=== PATIENT | female | born 1990 | race Caucasian/White ===

== ENCOUNTER → 2024-05-14 | Outpatient (CLI) | payer BC, SELFPAY ==
[2024-05-14 12:22] LABS: Misc Send Out* See Sep Rpt
[2024-05-14 13:13] LABS: Basophils % (Auto) 0 % (0-2.5); Eosinophils % (Auto) 0 % (0-10); Hematocrit 36.9 % (36.0-46.0); Hemoglobin 13.1 g/dL (12.0-16.0); Immature Granulocytes % (Auto) 0 % (0-0); Immature Granulocytes Auto 0.03 Thou/mm3 (0.00-0.00); Lymphocytes # (Auto) 1.3 Thou/mm3 (1.0-4.8); Lymphocytes % (Auto) 14 % (10-50); Mean Corpuscular HGB Conc 35.5 g/dl (31.0-37.0); Mean Corpuscular Hemoglobin 32.3 pg (25.0-35.0); Mean Corpuscular Volume 91 fL (80-100); Monocytes # (Auto) 0.8 Thou/mm3 (0.0-0.8); Monocytes % (Auto) 8 % (0-12); Neutrophils # (Auto) 7.3 Thou/mm3 (1.8-7.7); Neutrophils % (Auto) 77 % (37-80); Nucleated Red Blood Cell % 0 /100 WBC (0); Platelet Count 285 Thou/mm3 (140-440); RDW Standard Deviation 39.8 fL (36.4-46.3); Red Blood Count 4.05 Miln/mm3 (4.00-5.20); White Blood Count 9.5 Thou/mm3 (3.6-11.0)
[2024-05-14 13:16] LABS: Creatinine,Random Urine 83 mg/dL (30-125); Protein Total, Random Urine 25 mg/dL (1-14)
[2024-05-14 13:24] LABS: Alanine Aminotransferase 18 U/L (10-49); Aspartate Amino Transferase 21 U/L (0-34); C-Reactive Protein < 0.4 mg/dL (0.0-0.9); Creatinine (Component) 1.1 mg/dL (0.6-1.3); Free T3 3.5 pg/mL (2.3-4.2); Free T4 (Free Thyroxine) 0.95 ng/dL (0.89-1.76); Thyroid Stimulating Hormone 1.86 uIU/mL (0.55-4.78); eGFR > 60 See Note
[2024-05-14 13:29] LABS: Sed Rate (ESR) 3 mm/hr (0-20)
[2024-05-15 09:58] LABS: RA Screen Negative (Negative)
[2024-05-22 15:35] LABS: Sm Antibody <1.0 NEG AI (<1.0 NEGATIVE)
[2024-05-25 06:51] LABS: PTT-LA Screen 29 seconds (< OR = 40); dRVVT Screen 40 seconds (< OR = 45)
[2024-05-25 06:57] LABS: ANA Screen, IFA NEGATIVE (NEGATIVE); Complement Component C3* 141 mg/dL (83-193); Complement Component C4c* 26 mg/dL (15-57); DNA (ds) Antibody* 1 IU/mL; HLA-B27 Antigen* NEGATIVE (NEGATIVE); Parvovirus B19 Ab IgG 4.6; Parvovirus B19 Ab IgM 0.3; Sm/RNP Antibody <1.0 NEG AI (<1.0 NEGATIVE); Thyroglobulin Antibodies* 2 IU/mL (< OR = 1); Thyroid Peroxidase Antibodies* 209 IU/mL (<9)
== END | disposition home or self-care (01) ==
LOC: COPL 11:51
PROVIDERS: PCP Family Medicine; Referring Provider Internal Medicine Rheumatology; Visit Provider Internal Medicine Rheumatology
DX: L80 Vitiligo (principal)
CPT/HCPCS: 36415; 82565; 82570; 84156; 84182; 84439; 84443; 84450; 84460; 84481; 85025; 85613; 85652; 85730; 86038; 86140; 86147; 86160; 86225; 86235; 86376; 86430; 86747; 86800; 86812

== ENCOUNTER → 2024-06-02 | Outpatient (CLI) | payer BC, SELFPAY ==
--- NOTE | 2024-06-02 13:10 | XR_ITS ---
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
[2024-06-02 14:06] LABS: Coccid Serology, CF (UCD)* See Sep Rpt
[2024-06-02 15:04] LABS: Alanine Aminotransferase 19 U/L (10-49); Albumin, Serum 4.9 gm/dL (3.5-5.0); Alkaline Phosphatase 75 U/L (46-116); Anion Gap 6 (7-16); Aspartate Amino Transferase 16 U/L (0-34); BUN/Creatinine Ratio 14 Ratio (12-20); Bilirubin,Total 0.3 mg/dL (0.3-1.2); Blood Urea Nitrogen 14 mg/dL (9-23); C-Reactive Protein < 0.4 mg/dL (0.0-0.9); Carbon Dioxide 28.4 mMol/L (20.0-31.0); Chloride 103 mMol/L (98-107); Globulin 2.4 gm/dL (2.3-3.5); Glucose 87 mg/dL (74-106); Osmolality,Calculated 273 (275-295); Potassium 4.4 mMol/L (3.4-5.1); Sodium 137 mMol/L (136-145); Total Protein 7.3 gm/dL (5.7-8.2); eGFR > 60 See Note
== END | disposition home or self-care (01) ==
LOC: COPL 12:58
PROVIDERS: PCP Family Medicine; Referring Provider Internal Medicine Infectious Disease; Visit Provider Radiology Diagnostic Radiology
DX: J98.4 Other disorders of lung (principal); B38.2 Pulmonary coccidioidomycosis, unspecified
CPT/HCPCS: 36415; 71046; 80053; 86140; 86171

== ENCOUNTER 2024-07-05 13:57 | Emergency (ER) | payer BC, SELFPAY ==
[2024-07-05 13:58] VITALS: BMI 26.9
[2024-07-05 14:37] VITALS: BP 148/83; PULSE 64; RESP 16; TEMP 37.2; O2SAT 99
--- NOTE | 2024-07-05 14:59 | PD.EDRME ---
Rapid Medical Screening Exam RME Arrival date/time: 07/05/24 13:57 This is a 33-year-old female that comes in with complaints of possible abscess/ cyst to lower back. Patient states she has recently had fevers and headache. Patient started off with a rash to her face in mid May and was told that she possibly had impetigo or cold sore. Patient was given treatment for this. Patient also complains of mid lower back pain. Patient states that she was recently told that she can possibly have a cyst to her lower back. Patient reports that it has been draining. Patient complains of fever and nausea. Patient denies any past medical history. I have greeted and performed a focused initial assessment of this patient. Initial appropriate labs ordered at this time. A comprehensive ED assessment and evaluation of the patient and analysis of all test and completion of medical decision making process will be conducted by additional ED provider. Chief Complaint: General Adult/Misc Complain Time Seen by Provider: 07/05/24 14:34 Vital signs: Vital Signs Temperature 98.9 F 07/05/24 14:37 Pulse Rate 64 07/05/24 14:37 Respiratory Rate 16 07/05/24 14:37 Blood Pressure 148/83 H 07/05/24 14:37 Pulse Oximetry (%) 99 07/05/24 14:37 Oxygen Delivery Method Room Air 07/05/24 14:37
[2024-07-05 15:14] LABS: Collection Type, Urine Voided
[2024-07-05 15:24] LABS: Lactate (Lactic Acid) 1.3 mMol/L (0.4-2.0)
[2024-07-05 15:25] LABS: Basophils % (Auto) 0 % (0-2.5); Eosinophils # (Auto) 0.1 Thou/mm3 (0.0-0.5); Eosinophils % (Auto) 1 % (0-10); Hematocrit 35.6 % (36.0-46.0); Hemoglobin 12.7 g/dL (12.0-16.0); Immature Granulocytes % (Auto) 0 % (0-0); Immature Granulocytes Auto 0.02 Thou/mm3 (0.00-0.00); Lymphocytes # (Auto) 1.9 Thou/mm3 (1.0-4.8); Lymphocytes % (Auto) 23 % (10-50); Mean Corpuscular HGB Conc 35.7 g/dl (31.0-37.0); Mean Corpuscular Hemoglobin 32.5 pg (25.0-35.0); Mean Corpuscular Volume 91 fL (80-100); Monocytes # (Auto) 0.7 Thou/mm3 (0.0-0.8); Monocytes % (Auto) 8 % (0-12); Neutrophils # (Auto) 5.6 Thou/mm3 (1.8-7.7); Neutrophils % (Auto) 68 % (37-80); Nucleated Red Blood Cell % 0 /100 WBC (0); Platelet Count 278 Thou/mm3 (140-440); RDW Standard Deviation 40.4 fL (36.4-46.3); Red Blood Count 3.91 Miln/mm3 (4.00-5.20); White Blood Count 8.3 Thou/mm3 (3.6-11.0)
[2024-07-05 15:33] LABS: Bilirubin,Urine Negative (Negative); Blood,Urine Negative (Negative); Clarity,Urine Clear (Clear/Hazy); Color,Urine Lt-Yellow (Lt Yel-Yel); Culture Indicated,Urine Not Indicated; Glucose, Urine Negative (Negative); Ketones,Urine Negative (Negative); Leukocyte Esterase,Urine Negative (Negative); Nitrite,Urine Negative (Negative); Protein,Urine Negative (Neg - Trace); RBC,Urine 6 /hpf (0-3); Specific Gravity,Urine 1.017 (1.001-1.035); Squamous Epithelial Cell,Urine 4 /hpf (0-5); Urobilinogen,Urine Negative mg/dL (0.0-1.0); WBC,Urine 1 /hpf (0-5)
[2024-07-05 15:41] LABS: HCG,Qualitative Serum Negative
--- NOTE | 2024-07-05 15:53 | XR_ITS ---
Examination: CT pelvis without intravenous contrast. 2-D sagittal and coronal reconstructions. Date and time of exam:July 05, 2024 1613 hrs. Indications: Coccygeal soreness soft tissue pilonidal cyst infection this week CTDI: vol (mGy) : 8.32 DLP: (mGycm) : 279 Technique: Multiple 3 mm axial sections of the pelvis have been obtained with the 64 slice high resolution scanner. Post intravenous administration 60 cc [id number] 2-D sagittal and coronal reconstructions. Low dose protocols were performed. One or more of the following dose reduction techniques were used; automated exposure control, adjustment of the mA and/or KV according to patient size, use of iterative reconstruction technique. Findings: Nonobstructive bowel gas pattern Anteverted uterus 25 mm right adnexal cyst Soft tissue tract extending to the coccyx, axial image 79, 8 mm in thickness and extending 33 mm from the posterior margin of the coccyx to the skin surface No fluid-filled abscess Suspicious for early cortical bone destruction involving the distal coccygeal segment sagittal image 139 Impression: 25 mm right adnexal cyst Soft tissue tract extending from the skin surface to the coccyx, 8 mm in thickness and 33 mm measurement from the posterior margin of the coccyx to the skin surface Suspicious for early cortical bone destruction involving the distal coccygeal segment Recommend MRI pelvis without contrast follow-up
[2024-07-05 15:54] LABS: Alanine Aminotransferase 14 U/L (10-49); Albumin, Serum 4.9 gm/dL (3.5-5.0); Alkaline Phosphatase 66 U/L (46-116); Anion Gap 8 (7-16); Aspartate Amino Transferase 14 U/L (0-34); BUN/Creatinine Ratio 13 Ratio (12-20); Bilirubin,Total 0.5 mg/dL (0.3-1.2); Blood Urea Nitrogen 13 mg/dL (9-23); Calcium 9.9 mg/dL (8.3-10.6); Calcium (Corrected) 9.9 mg/dL (8.5-10.1); Carbon Dioxide 27.8 mMol/L (20.0-31.0); Chloride 103 mMol/L (98-107); Estimated Creatinine Clearance 91.9 mL/min (>60); Globulin 2.5 gm/dL (2.3-3.5); Glucose 87 mg/dL (74-106); Osmolality,Calculated 276 (275-295); Potassium 4.4 mMol/L (3.4-5.1); Procalcitonin < 0.04 ng/ml (0.0-0.49); Sodium 139 mMol/L (136-145); Total Protein 7.4 gm/dL (5.7-8.2); eGFR > 60 See Note
--- NOTE | 2024-07-05 15:54 | EDNOTE_ITS ---
ED General RME/HPI General Chief complaint: General Adult/Misc Complain Stated complaint: PASCUAL x 4 DAYS, SORE ON COCCYX X 2 DAYS Time Seen by Provider: 07/05/24 14:34 Arrival date/time: 07/05/24 13:57 CC: Pain and pus from the top of the butt crack HPI ongoing for several days. Localized back pain also present. Patient denies bowel or bladder symptoms saddle anesthesia numbness tingling weakness in the lower extremity. Localized pain is 2-3 on a 10 scale. Family member at bedside states there was pus expressed out of the area. RME / HPI RME / HPI narrative: 07/05/24 13:57 This is a 33-year-old female that comes in with complaints of possible abscess/ cyst to lower back. Patient states she has recently had fevers and headache. Patient started off with a rash to her face in mid May and was told that she possibly had impetigo or cold sore. Patient was given treatment for this. Patient also complains of mid lower back pain. Patient states that she was recently told that she can possibly have a cyst to her lower back. Patient reports that it has been draining. Patient complains of fever and nausea. Patient denies any past medical history. I have greeted and performed a focused initial assessment of this patient. Initial appropriate labs ordered at this time. A comprehensive ED assessment and evaluation of the patient and analysis of all test and completion of medical decision making process will be conducted by additional ED provider. Related Data Previous Rx's ?Medication ?Instructions ?Recorded loperamide 2 mg capsule 2 mg PO PRN ##14 01/09/13 Phenazopyridine * (PYRIDIUM *) 100 mg PO TIDPC #10 tabs 03/01/14 Sulfamethoxazole/Trimethoprim DS * 1 tab PO BID #10 tabs 03/01/14 (BACTRIM DS *) Cyclobenzaprine * (FLEXERIL *) 10 mg PO Q8HR PRN muscle spasm #15 05/12/16 tabs ibuprofen 600 mg tablet 1 tab PO Q8HR PRN pain #30 tabs 05/12/16 ranitidine HCl 150 mg tablet (Acid 150 mg PO Q12H PRN indigestion #30 11/24/17 Control (ranitidine)) tabs amoxicillin 875 mg-potassium 1 tab PO Q12H #10 tabs 12/15/23 clavulanate 125 mg tablet doxycycline monohydrate 100 mg 100 mg PO BID #10 caps 12/15/23 capsule ibuprofen 800 mg tablet 800 mg PO Q8H PRN pain #10 tabs 12/15/23 Allergies Allergy/AdvReac Type Severity Reaction Status Date / Time adhesive tape Allergy Severe Hives Verified 07/05/24 14:00 Review of Systems Review of Systems Narrative Review of Systems: GEN: No fever, no chills, no weight loss EYES: No discharge, no visual changes, no pain HEENT: No ear pain, no congestion, no sore throat PULM: No shortness of breath, no cough, no congestion CV: No chest pain, no dyspnea on exertion, no palpitations GI: No nausea, no vomiting, no diarrhea, no pain, no constipation : No frequency, no urgency, no dysuria MUSC/SKEL: No joint pain, no back pain SKIN: No rash PSYCH: No hallucinations, no depression HEME/LYMPH: No easy bleeding or bruising tendencies NEURO: No weakness, no headache Past Medical History Past Medical History CARDIAC: Negative Congestive Heart Failure RESPIRATORY: Negative Chronic Obstructive Pulmonary Disease (COPD) GENITOURINARY: Positive Genitourinary Disorders; Negative Renal Disease ENDOCRINE: Negative Diabetes Mellitus Type 1 or Diabetes Mellitus Type 2 Social History SMOKING STATUS: Never smoker ED Exam Narrative Physical exam: [General not in any acute distress Head normocephalic HEENT: Within acceptable limits Neck is supple nontender Chest equal chest rise nontender to palpation Respiratory: Clear to auscultation no wheezes crackles or rubs CV: Rate rhythm is regular no murmurs rubs or clicks Abdomen is distended secondary to body habitus soft nontender no masses positive bowel sounds all 4 quadrants Back: No CVA tenderness no spinous process tenderness from cervical spine thoracic and lumbar spine Skin: Pilonidal sinus detected in the proximal intergluteal cleft region. No surrounding erythema edema no firmness or mass appreciated in the underlying tissue. Unable to express any exudate or blood or fluid from the sinus. No streaking. Nontender to palpation. Otherwise skin is intact no petechiae rash induration ulceration or crepitus Extremities: Moving all extremity against resistance cap refill less than 2 seconds neurosensory intact Neuro: Awake alert oriented x3 Glascow coma 15 no focal deficits] Course Quality Measures none Orders Category Date Time Status CT Screening NOW Care 07/05/24 15:[address] pelvis w con Stat Exams 07/05/24 15:53 Completed Blood Culture (Lab) Stat Lab 07/05/24 15:05 Received CBC Stat Lab 07/05/24 15:10 Completed Comprehensive Metabolic Panel Stat Lab 07/05/24 15:10 Completed HCG,Qualitative Serum Stat Lab 07/05/24 15:10 Completed Lactate (Lactic Acid) Stat Lab 07/05/24 15:10 Completed Procalcitonin Stat Lab 07/05/24 15:10 Completed Urinalysis, C/S if Indicated Stat Lab 07/05/24 15:02 Completed Vital Signs Vital signs: Vital Signs Temperature 98.9 F 07/05/24 14:37 Pulse Rate 64 07/05/24 14:37 Respiratory Rate 16 07/05/24 14:37 Blood Pressure 148/83 H 07/05/24 14:37 Pulse Oximetry (%) 99 07/05/24 14:37 Oxygen Delivery Method Room Air 07/05/24 14:37 MDM Patient data External records reviewed:: [facility] previous records Clinical information provided by:: patient and family Social determinants that could affect healthcare access:: none Patient has the following chronic illnesses:: None How is presenting disease/condition affected by chronic disease/condition?: u neffected by Evaluation data The following diagnostics were reviewed and interpreted by me:: lab results and radiology exam(s) Lab and/or radiology exams considered but not ordered:: CBC shows no acute leukocytosis anemia thrombocytopenia CMP shows no acute electrolyte imbalances renal impairment transaminitis or T. bili elevation. Lactic acid is negative Pro-Luke is negative. Urine is negative Interpretation Summary: This is a pilonidal sinus without cyst, and there is no surrounding erythema or edema low index of suspicion however the patient is insisting on CT with IV contrast to see what the depth of the pilonidal sinus is. Patient and I had a lengthy conversation regarding a follow-up with surgery and/or plastics, review the literature show the patient may be able to get a phenol injection or glue as opposed to surgical resolution to the pilonidal sinus. Medications Medications considered but not ordered:: Bactrim and Keflex, already ordered by urgent care clinic. Medication administrations:: None Consultations Consultation(s) initiated? (list below): No Diagnosis Differential Diagnosis ED Complaint MDM: Pilonidal cyst pilonidal cellulitis pilonidal abscess pilonidal sinus Most likely diagnosis given after review of the tests above:: Pilonidal sinus Admission Indicated Admission indicated?: not indicated Explain why admission is indicated or not indicated:: Stable for outpatient follow-up Admission Request Was there a request for admission?: No Disposition Plan Disposition Plan: Discharge Discharge Attestation Discharge Attestation: The patient and all family members were given an opportunity to ask questions and understood the discharge instructions. Discharge instructions specifically effects, indications for sooner follow up or return to the emergency department, and the expected course of current diagnosis. Patient condition: Stable Medical Decision Making Differential Diagnosis Differential Diagnosis: Pilonidal cyst pilonidal cellulitis pilonidal abscess pilonidal sinus Lab Data 07/05/24 15:10 07/05/24 15:10 Labs: Lab Results 07/05/24 07/05/24 Range/Units 15:02 15:10 WBC 8.3 (3.6-11.0) Thou/mm3 RBC 3.91 L (4.00-5.20) Miln/mm3 Hgb 12.7 (12.0-16.0) g/dL Hct 35.6 L (36.0-46.0) % MCV 91 (80-100) fL MCH 32.5 (25.0-35.0) pg MCHC 35.7 (31.0-37.0) g/dl RDW Std Deviation 40.4 (36.4-46.3) fL Plt Count 278 (140-440) Thou/mm3 Neut % (Auto) 68 (37-80) % Lymph % (Auto) 23 (10-50) % [place] % (Auto) 8 (0-12) % Eos % (Auto) 1 (0-10) % Baso % (Auto) 0 (0-2.5) % Neut # (Auto) 5.6 (1.8-7.7) Thou/mm3 Lymph # (Auto) 1.9 (1.0-4.8) Thou/mm3 [place] # (Auto) 0.7 (0.0-0.8) Thou/mm3 Eos # (Auto) 0.1 (0.0-0.5) Thou/mm3 Baso # (Auto) 0.0 (0.0-0.2) Thou/mm3 Immature Gran # (Auto) 0.02 H (0.00-0.00) Thou/mm3 Absolute Nucleated RBC 0.00 (0.00-0.00) Thou/mm3 Immature Gran % 0 (0-0) % Nucleated RBC % 0 (0) /100 WBC Sodium 139 (136-145) mMol/L Potassium 4.4 (3.4-5.1) mMol/L Chloride 103 (98-107) mMol/L Carbon Dioxide 27.8 (20.0-31.0) mMol/L Anion Gap 8 (7-16) BUN 13 (9-23) mg/dL Creatinine 1.0 (0.6-1.3) mg/dL Estim Creat Clear Calc 91.9 (>60) mL/min eGFR > 60 (60 - ) See Note BUN/Creatinine Ratio 13 (12-20) Ratio Glucose 87 (74-106) mg/dL Calculated Osmolality 276 (275-295) Lactic Acid 1.3 (0.4-2.0) mMol/L Calcium 9.9 (8.3-10.6) mg/dL Corrected Calcium 9.9 (8.5-10.1) mg/dL Total Bilirubin 0.5 (0.3-1.2) mg/dL AST 14 (0-34) U/L ALT 14 (10-49) U/L Alkaline Phosphatase 66 (46-116) U/L Total Protein 7.4 (5.7-8.2) gm/dL Albumin 4.9 (3.5-5.0) gm/dL Globulin 2.5 (2.3-3.5) gm/dL Albumin/Globulin Ratio 2.0 (1.2-2.2) Procalcitonin < 0.04 (0.0-0.49) ng/ml HCG, Qual Negative Ur Collection Type Voided Urine Color Lt-Yellow (Lt Yel-Yel) Urine Clarity Clear (Clear/Hazy) Urine pH 7.0 (5.0-7.0) Ur Specific [place] 1.017 (1.001-1.035) Urine Protein Negative (Neg - Trace) Urine Glucose (UA) Negative (Negative) Urine Ketones Negative (Negative) Urine Blood Negative (Negative) Urine Nitrite Negative (Negative) Urine Bilirubin Negative (Negative) Urine Urobilinogen (Auto) Negative (0.0-1.0) mg/dL Ur Leukocyte Esterase Negative (Negative) Urine RBC 6 H (0-3) /hpf Urine WBC 1 (0-5) /hpf Ur Squamous Epith Cells 4 (0-5) /hpf Urine Bacteria None (None) Ur Culture Indicated? Not Indicated Discharge Plan Plan Patient Disposition: HOME (Self Care) Patient condition on transfer: Stable Prescriptions/Referrals Prescriptions/Med Rec: No Action loperamide 2 MG capsule 2 mg PO PRN Qty: 14 0RF Phenazopyridine * (PYRIDIUM *) 100 MG tablet 100 mg PO TIDPC Qty: 10 0RF Sulfamethoxazole/Trimethoprim DS * (BACTRIM DS *) 1 TAB tablet 1 tab PO BID Qty: 10 0RF ibuprofen 600 MG tablet 1 tab PO Q8HR PRN (Reason: pain) Qty: 30 0RF Cyclobenzaprine * (FLEXERIL *) 10 MG tablet 10 mg PO Q8HR PRN (Reason: muscle spasm) Qty: 15 0RF ranitidine HCl [Acid Control (ranitidine)] 150 mg tablet 150 mg PO Q12H PRN (Reason: indigestion) Qty: 30 0RF ibuprofen 800 mg tablet 800 mg PO Q8H PRN (Reason: pain) Qty: 10 0RF amoxicillin-pot clavulanate 875-125 mg tablet 1 tab PO Q12H Qty: 10 0RF doxycycline monohydrate 100 mg capsule 100 mg PO BID Qty: 10 0RF Referrals: Slick Harper MD [Primary Care Provider] - In 1 week Raegan Davies MD [Physician] - In 1 week Problem List Clinical Impression: Pilonidal sinus without abscess Patient/Caregiver Discharge Instructions Other Activity Instructions:: CT shows that you have a 3.3 cm pilonidal sinus that extends down to the coccyx bone. I do recommend an outpatient MRI follow- up to make sure there is no cortical destruction. Please start the medications both Bactrim and Keflex prescribed by the outpatient clinic for infection. If there are any worsening of symptoms including redness or pus coming out from the area return the emergency room for reevaluation. In the long-term consider surgical consult for the pilonidal situs to get it sealed up or closed off. Education Materials: ED Pilonidal Cyst, Not Infected Print Language: [place] Stand Alone Forms: Kristy Award Info., Patient Portal Info Letter, Work/School Release PA/[employer]ED [employer] Supervising Physician PA/[employer] Supervising Physician: Ke Arias ENP
[2024-07-05 16:06] VITALS: BP 135/83; PULSE 68; RESP 18; TEMP 37; O2SAT 99
== END 2024-07-05 17:20 | disposition home or self-care (01) ==
PROVIDERS: Nurse Practitioner Family; Emergency Provider Emergency Medicine; PCP Family Medicine
DX: L05.91 Pilonidal cyst without abscess (principal)
CPT/HCPCS: 36415; 72193; 80053; 81001; 83605; 84145; 84703; 85025; 87040; 99285; A4649; Q9967

== ENCOUNTER → 2024-07-09 | Outpatient (CLI) | payer BC, SELFPAY ==
--- NOTE | 2024-07-09 07:00 | XR_ITS ---
Examination: MRI lumbar spine without contrast Date and time of exam: July 09, 2024 0704 hours INDICATIONS: Low back pain beginning 4 days ago, CT examination July 05, 2024 of the pelvis shows soft tissue tract extending from the skin surface to the coccyx Technique: Multiple MRI axial and sagittal sections lumbar spine. Sagittal T2-weighted images, TR 3500, TE 118 T1 weighted transverse sections, TR 688 T8.5, T2-weighted sagittal sections T1 weighted sagittal sections TR 621, TE 30 T2 axial sections, TR 4, 190, TE 84. Findings: Adequate alignment lumbar vertebral bodies Moderate to advanced disc narrowing L5-S1 Disc desiccation lower 2 lumbar levels These images do not include the coccygeal segments L5-S1 3 mm central disc bulge contiguous with the left S1 nerve root L4-L5 3 mm central lumbar disc bulge contiguous with the left L5 nerve root L3-L4 no disc protrusion L2-L3 no disc protrusion L1-L2 no disc protrusion IMPRESSION: L5-S1 L4-L5 disc bulges as above Given the patient's findings on the CT pelvis, recommend MRI pelvis without contrast follow-up
== END | disposition home or self-care (01) ==
LOC: SMRI 06:49
PROVIDERS: PCP Physician Assistant; Referring Provider Physician Assistant; Visit Provider Physician Assistant
DX: M51.379 Other intervertebral disc degeneration, lumbosacral region without mention of lumbar back pain or lower extremity pain (principal); M51.369 Other intervertebral disc degeneration, lumbar region without mention of lumbar back pain or lower extremity pain
CPT/HCPCS: 72148

== ENCOUNTER → 2024-07-24 | Outpatient (CLI) | payer BC, SELFPAY ==
--- NOTE | 2024-07-24 13:15 | XR_ITS ---
Examination: MRI pelvis, without contrast Date and time of exam: July 24, 2024 1450 hours INDICATIONS: CT pelvis July 05, 2024 soft tissue tract extending from the skin surface to the coccyx 8 mm in thickness and 33 mm in length, patient states lower back and buttock tenderness Technique: Multiple axial sagittal and coronal images of the pelvis have been obtained with the Siemens high-resolution 1.5 [place] MRI scanner. Images obtained include T2-weighted fat-suppressed sagittal sections, TR 3500, TE 46, T2 weighted coronal fat suppressed images, TR 3050, TE 84, T2-weighted transverse fat suppressed images, TR 3260, TE 63, proton density transverse images, TR 4720 TE 46, and T1 weighted coronal images, TR 560, TE 13. Findings: No free fluid in the pelvis Septated 3 cm left ovarian cyst No soft tissue abscess posterior to the sacrum or coccyx Negative for osteomyelitis No perianal abscess Anteverted uterus IMPRESSION: Intergluteal fold posterior to the coccyx but no soft tissue abscess or definite focus of inflammation on the MRI study
== END | disposition home or self-care (01) ==
PROVIDERS: PCP Physician Assistant; Referring Provider Physician Assistant; Visit Provider Physician Assistant
DX: L05.92 Pilonidal sinus without abscess (principal)
CPT/HCPCS: 72195

== ENCOUNTER → 2024-08-20 | Outpatient (CLI) | payer OTHER, SELFPAY ==
[2024-08-20 12:53] LABS: Alanine Aminotransferase 13 U/L (10-49); Albumin, Serum 4.8 gm/dL (3.5-5.0); Albumin/Globulin Ratio 1.9 (1.2-2.2); Alkaline Phosphatase 70 U/L (46-116); Anion Gap 8 (7-16); Aspartate Amino Transferase 20 U/L (0-34); BUN/Creatinine Ratio 15 Ratio (12-20); Bilirubin,Total 0.8 mg/dL (0.3-1.2); Blood Urea Nitrogen 17 mg/dL (9-23); Calcium 10.2 mg/dL (8.3-10.6); Calcium (Corrected) 10.2 mg/dL (8.5-10.1); Carbon Dioxide 28.4 mMol/L (20.0-31.0); Chloride 101 mMol/L (98-107); Creatinine (Component) 1.1 mg/dL (0.6-1.3); Globulin 2.5 gm/dL (2.3-3.5); Glucose 93 mg/dL (74-106); Osmolality,Calculated 275 (275-295); Sodium 137 mMol/L (136-145); Total Protein 7.3 gm/dL (5.7-8.2); eGFR > 60 See Note
== END | disposition home or self-care (01) ==
LOC: COPL 11:21
PROVIDERS: PCP Family Medicine; Referring Provider Orthopaedic Surgery; Visit Provider Orthopaedic Surgery
DX: Z79.1 Long term (current) use of non-steroidal anti-inflammatories (NSAID) (principal)
CPT/HCPCS: 36415; 80053

== ENCOUNTER → 2024-09-08 | Outpatient (CLI) | payer BC, SELFPAY ==
[2024-09-07 17:52] LABS: HCG Qualitative,Urine Negative
--- NOTE | 2024-09-08 15:00 | XR_ITS ---
Examination: MRI of brain without intravenous contrast. MRI brain with intravenous contrast. Date and time of exam:September 08, 2024 1522 hours Comparison September 16, 2020 INDICATIONS: Headaches one month, right eye twitching 5 years, burning sensation and numbness in the feet numbness in both hands one year Technique: Multiple axial and sagittal images of the brain to been obtained. Siemens high-resolution 1.52 [place] short bore scanner utilized. Sagittal sections, T1 weighted images, TR 500, TE 14, are performed. Axial sections proton-density and T2-weighted images have been obtained. Inversion recovery axial images, TR 9260, TE 111, TR 2500. Diffusion weighted images, axial sections, TR 4800, TE 128, B value 1000. Axial sections, ADC map, TR 4800, TE 128. Axial and coronal images were also obtained post 16 cc gadolinium administered intravenously. Findings:: Enlargement of the sella turcica is not present. The optic chiasm and infundibular stalk are not remarkable. There is no localized enlargement of the medulla or sydni. Fourth ventricle and cerebellar tonsils appear normal in position. No subacute area of hemorrhage density is seen. Fourth ventricle is midline. Mass in the cerebellopontine angle region is not evident. 7th and 8th nerve complexes exhibit symmetry Globes are symmetrical Orbital musculature including medial lateral rectus muscles do not exhibit abnormality Increased white matter signal is not seen Effacement of the cortical sulcal markings is not identified. Mass effect upon the ventricular system is not identified. Diffusion-weighted images demonstrate no focus of restricted diffusion Contrast images demonstrate no abnormal enhancement Impression: Negative for acute hemorrhage mass effect or midline shift No acute infarct No MR findings diagnostic for demyelinating disease
--- NOTE | 2024-09-08 15:45 | XR_ITS ---
Examination: MRI thoracic spine, without contrast Date and time of exam: September 08, 2024 1522 hours INDICATIONS: Back pain mid back pain 4 months Technique: Multiple axial sagittal and coronal images of the thoracic spine without intravenous contrast have been obtained with the Siemens high-resolution 1.5 [place] MRI scanner. Images obtained include T2-weighted fat-suppressed sagittal sections, TR 3500, TE 46, T2 weighted coronal fat suppressed images, TR 3050, TE 84, T2-weighted transverse fat suppressed images, TR 3260, TE 63, proton density transverse images, TR 4720 TE 46, and T1 weighted coronal images, TR 560, TE 13. Findings: Adequate alignment thoracic vertebral bodies on the lateral view Normal marrow signal thoracic vertebral bodies No thoracic significant disc narrowing Axial images demonstrate no focal thoracic disc protrusion No impingement upon the thoracic cord. No localized enlargement thoracic cord. No thoracic syrinx cavity IMPRESSION: Satisfactory alignment thoracic vertebral bodies No thoracic vertebral body compression fracture No focal thoracic disc protrusion and no impingement upon the thoracic cord
== END | disposition home or self-care (01) ==
LOC: SMRI 14:38
PROVIDERS: PCP Family Medicine; Referring Provider Psychiatry & Neurology Neurology; Visit Provider Psychiatry & Neurology Neurology
DX: R22.0 Localized swelling, mass and lump, head (principal); M54.6 Pain in thoracic spine; Z32.00 Encounter for pregnancy test, result unknown
CPT/HCPCS: 70553; 72157; 81025; A9579

== ENCOUNTER → 2024-10-19 | Outpatient (CLI) | payer BC, SELFPAY ==
[2024-10-19 07:58] LABS: Coccid Serology, CF (UCD)* See Sep Rpt
--- NOTE | 2024-10-19 08:13 | XR_ITS ---
Examination: PA lateral chest 2 views TECHNIQUE: Upright PA lateral chest 2 views Exam date and time: October 19, 2024 0831 hours Comparison June 02, 2024 INDICATIONS: Diagnosis coccidiomycosis posttreatment FINDINGS: Normal heart size Lungs are clear. The osseous structures are intact IMPRESSION: No active disease
== END | disposition home or self-care (01) ==
LOC: CDIM 07:45
PROVIDERS: PCP Family Medicine
DX: B38.2 Pulmonary coccidioidomycosis, unspecified (principal)
CPT/HCPCS: 71046; 86171

== ENCOUNTER → 2024-12-04 | Outpatient (CLI) | payer BC, SELFPAY ==
--- NOTE | 2024-12-04 | XR_ITS ---
Examination: PA lateral chest 2 views Upright PA lateral chest 2 views Date and time: 08/06/2024 0809 hours Comparison October 19, 2024 INDICATIONS: Diagnosis coccidiomycosis one year ago post treatment FINDINGS: Normal heart size Minimal scarring at the right base medially No pneumonia or pulmonary edema Mild osteopenia IMPRESSION: No pneumonia identified
== END | disposition home or self-care (01) ==
LOC: CDIM 07:43
PROVIDERS: PCP Family Medicine; Referring Provider Internal Medicine Infectious Disease; Visit Provider Internal Medicine Infectious Disease
DX: M85.88 Other specified disorders of bone density and structure, other site (principal); B38.2 Pulmonary coccidioidomycosis, unspecified
CPT/HCPCS: 71046

== ENCOUNTER → 2024-12-11 | Outpatient (CLI) | payer BC, SELFPAY ==
[2024-12-11 09:31] LABS: Coccid Serology, CF (UCD)* See Sep Rpt
[2024-12-11 09:40] LABS: Coccid Serology, CF CSF (UCD)* See Sep Rpt; Misc Send Out* See Sep Rpt
[2024-12-11 10:11] LABS: CSF White Blood Cell 1 /cmm
[2024-12-11 10:23] LABS: Glucose,CSF 61 mg/dL (40-70); Protein Total,CSF 38 mg/dL (8-32)
[2024-12-11 10:35] LABS: CSF Cell Count Tube # Tube # 4; CSF Color Colorless (Colorless); CSF Red Blood Cell 8 /cmm
[2024-12-11 10:36] LABS: CSF Polynuclear WBC 0 %; CSF, Appearance Clear (Clear)
[2024-12-11 11:26] LABS: CSF Gram Stain Alert Gram Stain Completed
[2024-12-15 13:49] LABS: Albumin, CSF 20.2 mg/dL (8.0-42.0); IgG Index, CSF 0.52 (<0.70); IgG, CSF 2.7 mg/dL (0.8-7.7); IgG, Serum 1060 mg/dL (600-1640); Synthesis Rate IgG, CSF -2.1 mg/24 h (-9.9 TO +3.3)
[2024-12-16 06:46] LABS: Albumin, Serum 4.1 g/dL (3.6-5.1); VDRL, CSF Qual* NON-REACTIVE
[2024-12-17 06:59] LABS: Angiotensin Convert Enz, CSF* <5 U/L (< OR = 15); Myelin Basic Protein, CSF* <2.0 mcg/L (< OR = 4.0); Oligoclonal Bands, CSF* ABSENT (ABSENT)
== END | disposition home or self-care (01) ==
PROVIDERS: PCP Family Medicine; Referring Provider Internal Medicine Infectious Disease; Visit Provider Psychiatry & Neurology Neurology
DX: G37.4 Subacute necrotizing myelitis of central nervous system (principal)
CPT/HCPCS: 36415; 82040; 82042; 82164; 82784; 82945; 83873; 83916; 84157; 86171; 86592; 87070; 87205; 89051